=== PATIENT | male | born 1945 | race Caucasian/White ===

== ENCOUNTER 2017-09-18 08:21 | Emergency (ER) | payer OTHER ==
[~2017-09-18] VITALS: Ht 182.9 cm; Wt 104.3 kg
[~2017-09-18 08:21] MED LIST: NABUMETONE500 MG PO; PERCOCET 5/3251 TAB PO
[2017-09-18] MEDS ORDERED: LIPITOR20 MG (08:44)
[2017-09-18] MEDS ORDERED: DIOVAN40 MG (08:44)
[2017-09-18] MEDS ORDERED: TAMS0.4C PO (10:24)
[2017-09-18] MEDS ORDERED: BACTRIM 400-801 EACH PO (10:24)
== END 2017-09-18 10:28 | disposition home or self-care (01) ==
LOC: ER 08:21
DX: N39.0 Urinary tract infection, site not specified (principal)

== ENCOUNTER 2019-08-19 10:53 | Outpatient (CLI) | payer OTHER ==
[~2019-08-19 10:53] MED LIST changes: +BACTRIM 400-801 EACH PO; +DIOVAN40 MG; +LIPITOR20 MG; +TAMS0.4C PO
== END 2019-08-19 15:08 | disposition home or self-care (01) ==
LOC: TOM 10:53
DX: K57.00 Diverticulitis of small intestine with perforation and abscess without bleeding (principal)

== ENCOUNTER 2019-11-12 13:16 | Outpatient (CLI) | payer OTHER | END 2019-11-12 13:55 | disposition home or self-care (01) | LOC: RAD 13:16 | DX: J18.8 Other pneumonia, unspecified organism (principal) ==

== ENCOUNTER 2019-11-22 07:58 | Outpatient (CLI) | payer OTHER | END 2019-11-22 08:05 | disposition home or self-care (01) | LOC: TOM 07:58 | DX: J44.9 Chronic obstructive pulmonary disease, unspecified (principal) ==

== ENCOUNTER 2020-07-08 07:21 | Outpatient (CLI) | payer OTHER | END 2020-07-08 07:28 | disposition home or self-care (01) | LOC: RAD 07:21 | DX: M99.03 Segmental and somatic dysfunction of lumbar region (principal) ==

== ENCOUNTER 2021-03-26 06:56 | Emergency (ER) | payer OTHER ==
[~2021-03-26] VITALS: Ht 182.9 cm; Wt 106.6 kg
[2021-03-26] MEDS ORDERED: LOSARTAN POTASS50 MG PO (07:24)
[2021-03-26] MEDS ORDERED: ATORVASTATIN CA20 MG PO (07:24)
[2021-03-26] MEDS ORDERED: UROXATRAL10 MG PO (07:25)
[2021-03-26] MEDS ORDERED: ATARAX25 MG PO (08:40)
[2021-03-26] MEDS ORDERED: ZYRTEC10 M3 PO (08:40)
[2021-03-30] MEDS ORDERED: LIPITOR20 MG PO (18:41)
[2021-03-30] MEDS ORDERED: MEGARED OMEGA-1 EAC2 PO (18:41)
[2021-03-30] MEDS ORDERED: ADULT ASPIRIN81 MG PO (18:42)
== END 2021-03-26 08:54 | disposition home or self-care (01) ==
LOC: ER 06:56
DX: R21 Rash and other nonspecific skin eruption (principal)

== ENCOUNTER → 2021-03-30 | Emergency (ER) | payer OTHER ==
[~2021-03-30] VITALS: Ht 182.9 cm; Wt 108.9 kg
[~2021-03-30] MED LIST changes: +ADULT ASPIRIN81 MG PO; +ATARAX25 MG PO; +ATORVASTATIN CA20 MG PO; +LIPITOR20 MG PO; +LOSARTAN POTASS50 MG PO; +MEGARED OMEGA-1 EAC2 PO; +UROXATRAL10 MG PO; +ZYRTEC10 M3 PO
== END | disposition home or self-care (01) ==
LOC: ER 18:32
DX: N39.0 Urinary tract infection, site not specified (principal); R31.29 Other microscopic hematuria

== ENCOUNTER 2021-12-28 08:00 | Outpatient (CLI) | payer OTHER | END 2021-12-28 08:30 | disposition home or self-care (01) | LOC: PPH VACUNA 08:00 | PROVIDERS: ATTEND Emergency Medicine Pediatric Emergency Medicine | DX: Z23 Encounter for immunization (principal) ==

== ENCOUNTER 2022-05-02 07:54 | Outpatient (CLI) | payer OTHER | END 2022-05-02 08:00 | disposition home or self-care (01) | LOC: RAD 07:54 | PROVIDERS: ATTEND Internal Medicine | DX: M13.861 Other specified arthritis, right knee (principal) ==

== ENCOUNTER 2022-05-03 10:04 | Outpatient (CLI) | payer OTHER | END 2022-05-03 10:15 | disposition home or self-care (01) | LOC: RAD 10:04 | PROVIDERS: ATTEND Internal Medicine | DX: M25.559 Pain in unspecified hip (principal) ==

== ENCOUNTER 2022-05-03 10:58 | Outpatient (CLI) | payer OTHER | END 2022-05-03 10:59 | disposition home or self-care (01) | LOC: NUCLEAR 10:58 | PROVIDERS: ATTEND Internal Medicine | DX: I70.219 Atherosclerosis of native arteries of extremities with intermittent claudication, unspecified extremity (principal); I82.401 Acute embolism and thrombosis of unspecified deep veins of right lower extremity ==

== ENCOUNTER 2022-05-10 08:06 | Outpatient (CLI) | payer OTHER | END 2022-05-10 08:08 | disposition home or self-care (01) | LOC: NUCLEAR 08:06 | PROVIDERS: ATTEND Internal Medicine | DX: I70.219 Atherosclerosis of native arteries of extremities with intermittent claudication, unspecified extremity (principal); I82.401 Acute embolism and thrombosis of unspecified deep veins of right lower extremity ==

== ENCOUNTER 2022-05-30 13:24 | Outpatient (CLI) | payer OTHER | END 2022-05-30 13:34 | disposition home or self-care (01) | LOC: PPH VACUNA 13:24 | PROVIDERS: ATTEND Emergency Medicine Pediatric Emergency Medicine | DX: Z23 Encounter for immunization (principal) ==

== ENCOUNTER 2022-10-10 10:03 | Outpatient (CLI) | payer OTHER | END 2022-10-10 10:05 | disposition home or self-care (01) | LOC: NUCLEAR 10:03 | PROVIDERS: ATTEND Physical Medicine & Rehabilitation | DX: I77.9 Disorder of arteries and arterioles, unspecified (principal) ==

== ENCOUNTER 2022-10-12 09:06 | Outpatient (CLI) | payer OTHER | END 2022-10-12 09:11 | disposition home or self-care (01) | LOC: NUCLEAR 09:06 | PROVIDERS: ATTEND Physical Medicine & Rehabilitation | DX: I87.2 Venous insufficiency (chronic) (peripheral) (principal) ==

== ENCOUNTER 2023-05-01 14:10 | Outpatient (CLI) | payer OTHER | END 2023-05-01 14:12 | disposition home or self-care (01) | LOC: TOM 14:10 | PROVIDERS: ATTEND Specialist | DX: R31.1 Benign essential microscopic hematuria (principal) ==

== ENCOUNTER 2024-03-22 08:07 | Outpatient (CLI) | payer OTHER | END 2024-03-22 08:22 | disposition home or self-care (01) | LOC: MRI 08:07 | PROVIDERS: ATTEND Internal Medicine Rheumatology | DX: M51.27 Other intervertebral disc displacement, lumbosacral region (principal) | CPT/HCPCS: 72148 ==

== ENCOUNTER 2024-04-16 12:42 | Outpatient (CLI) | payer OTHER | END 2024-04-16 12:53 | disposition home or self-care (01) | LOC: RAD 12:42 | PROVIDERS: ATTEND General Practice | DX: N20.0 Calculus of kidney (principal) ==

== ENCOUNTER 2024-06-18 11:51 | Outpatient (CLI) | payer OTHER | END 2024-06-18 11:58 | disposition home or self-care (01) | LOC: RAD 11:51 | PROVIDERS: ATTEND Internal Medicine Rheumatology | DX: M15.0 Primary generalized (osteo)arthritis (principal) ==

== ENCOUNTER 2024-07-10 09:58 | Outpatient (CLI) | payer OTHER | END 2024-07-10 10:13 | disposition home or self-care (01) | LOC: RAD 09:58 | DX: J45.901 Unspecified asthma with (acute) exacerbation (principal); J44.9 Chronic obstructive pulmonary disease, unspecified ==

== ENCOUNTER 2024-07-25 13:15 | Outpatient (CLI) | payer OTHER | END 2024-07-25 13:27 | disposition home or self-care (01) | LOC: TOM 13:15 | PROVIDERS: ATTEND Internal Medicine Pulmonary Disease | DX: R06.02 Shortness of breath (principal); Z87.891 Personal history of nicotine dependence; R05.3 Chronic cough ==

== ENCOUNTER 2024-08-05 08:10 | Outpatient (CLI) | payer OTHER | END 2024-08-05 08:12 | disposition home or self-care (01) | LOC: NUCLEAR 08:10 | PROVIDERS: ATTEND Internal Medicine Pulmonary Disease | DX: R91.1 Solitary pulmonary nodule (principal); J43.2 Centrilobular emphysema; Z87.891 Personal history of nicotine dependence | CPT/HCPCS: 78815; A9552 ==

== ENCOUNTER 2024-11-20 10:00 | Outpatient (CLI) | payer OTHER | END 2024-11-20 10:15 | disposition home or self-care (01) | LOC: MRI 10:00 | PROVIDERS: ATTEND Orthopaedic Surgery | DX: M25.561 Pain in right knee (principal); M25.562 Pain in left knee | CPT/HCPCS: 73721 ==

== ENCOUNTER 2024-12-09 08:14 | Outpatient (CLI) | payer OTHER | END 2024-12-09 08:18 | disposition home or self-care (01) | LOC: SONOGRAMA 08:14 | PROVIDERS: ATTEND Specialist | DX: N28.1 Cyst of kidney, acquired (principal) ==

== ENCOUNTER 2024-12-12 11:19 | Outpatient (CLI) | payer OTHER | END 2024-12-12 11:21 | disposition home or self-care (01) | LOC: RAD 11:19 | PROVIDERS: ATTEND Physical Medicine & Rehabilitation | DX: M54.2 Cervicalgia (principal) ==

== ENCOUNTER 2025-02-06 10:25 | Outpatient (CLI) | payer OTHER | END 2025-02-06 10:27 | disposition home or self-care (01) | LOC: RAD 10:25 | PROVIDERS: ATTEND Physical Medicine & Rehabilitation | DX: M25.561 Pain in right knee (principal) ==